=== PATIENT | female | born 1975 | race Caucasian/White ===

== ENCOUNTER 2020-01-01 10:55 | Emergency (ER) | payer OTHER ==
[2020-01-01 11:23] VITALS: BP 132/99
--- NOTE | 2020-01-01 12:17 | ED Physician Documentation ---
PD HPI HEENT - Stated complaint Stated Complaint: R EAR PN/COUGH - Chief complaint Chief Complaint: Heent - History obtained from History obtained from: Patient - History of Present Illness Timing - onset: Other (Very pleasant 44-year-old woman visiting from [place]. She is had about 3 to 4 days of minimally productive cough and mild shortness of breath without fever and since last night has had severe right ear pain. She has a history of recurrent otitis media in both ears and the right is her bad ear.) Review of Systems Constitutional: denies: Fever, Chills Ears: reports: Loss of hearing (Chronic), Ear pain. denies: Drainage/discharge Nose: reports: Rhinorrhea / runny nose, Congestion Throat: denies: Sore throat Respiratory: reports: Cough. denies: Dyspnea PD PAST MEDICAL HISTORY - Past Medical History Past Medical History: Yes Cardiovascular: None Respiratory: Asthma Endocrine/Autoimmune: None GI: None CABLE SYSTEMS INSTALLER: None : None HEENT: Chronic vision loss Psych: None Musculoskeletal: None Derm: None - Past Surgical History Past Surgical History: Yes General: Cholecystectomy /CABLE SYSTEMS INSTALLER: Tubal ligation, Hysterectomy HEENT: Other - Present Medications Home Medications: Ambulatory Orders Medication Instructions Recorded Confirmed Albuterol Sulf [Ventolin Hfa 1 - 2 puffs INH Q4HR PRN #1 inhaler 01/01/20 Inhaler] Amox/Clav 875/125 [Augmentin] 1 each PO Q12H #20 tablet 01/01/20 Benzonatate [Tessalon Perle] 100 - 200 mg PO TID PRN #30 capsule 01/01/20 Fluoxetine HCl [Prozac] 01/01/20 Hydrocodone/Acetaminophen 1 - 2 each PO Q6H PRN #7 tablet 01/01/20 [Hydrocodon-Acetaminophen 5-325] Montelukast Sodium [Singulair] 5 mg PO 01/01/20 Omeprazole 20 mg PO 01/01/20 guaiFENesin/CODEINE [Robitussin AC] 5 - 10 ml PO Q6H PRN #120 ml 01/01/20 - Allergies Allergies/Adverse Reactions: Allergies Allergy/AdvReac Type Severity Reaction Status Date / Time No Known Drug Allergies Allergy Verified 01/01/20 11:23 - Social History Does the pt smoke?: Yes Smoking Status: Current every day smoker Does the pt drink ETOH?: No Does the pt have substance abuse?: No - Immunizations Immunizations are current?: No Immunizations: No immun - POLST Patient has POLST: No PD ED PE NORMAL - Vitals Vital signs reviewed: Yes - General General: Alert and oriented X 3, No acute distress - HEENT HEENT: Other (Severe right otitis media, left TM is significantly sclerosed with a tube in place) - Neck Neck: Supple, no meningeal sign, No bony TTP - Cardiac Cardiac: RRR, No murmur - Respiratory Respiratory: No respiratory distress, Other (Mild expiratory wheezes, nonlabored) - Abdomen Abdomen: Non tender - Derm Derm: No rash - Neuro Neuro: Alert and oriented X 3, Normal speech Results - Vitals Vitals: Vital Signs - 24 hr 01/01/20 11:21 Temperature 36.8 C Heart Rate 117 H Respiratory 18 Rate Blood Pressure 132/99 H O2 Saturation 99 Oxygen O2 Source Room air - Rads (name of study) 2v chest Radiology: EMP read contemporaneously Departure - Departure Disposition: 01 Home, Self Care Clinical Impression: ROM (right otitis media) Condition: Critical Instructions: ED Otitis Media Acute Adult Prescriptions: Albuterol Sulf [Ventolin Hfa Inhaler] 1 - 2 puffs INH Q4HR PRN #1 inhaler PRN Reason: Shortness Of Air/Wheezing Amox/Clav 875/125 [Augmentin] 1 each PO Q12H #20 tablet Benzonatate [Tessalon Perle] 100 - 200 mg PO TID PRN #30 capsule PRN Reason: Cough guaiFENesin/CODEINE [Robitussin AC] 5 - 10 ml PO Q6H PRN #120 ml PRN Reason: Cough Hydrocodone/Acetaminophen [Hydrocodon-Acetaminophen 5-325] 1 - 2 each PO Q6H PRN #7 tablet PRN Reason: pain Comments: Recheck with your doctor and return home, return for new or worsening symptoms. Take plenty of fluids. Do not drink or drive while taking narcotic pain medication. Note that many narcotic pain relievers also contain Tylenol/acetaminophen. Please ensure that your total dose of acetaminophen from all sources does not exceed 3 g (3000 mg) per day. You may get constipated while on this medication. Take a stool softener such as Colace twice a day while you are on it. Also add an [id number] laxative such as senna or MiraLAX on any day that you do not have a bowel movement. If you received a narcotic pain medication or sedative while in the emergency department, do not drive for the next 24 hours. Discharge Date/Time: 01/01/20 12:22
--- NOTE | 2020-01-01 12:19 | XRAY Report ---
Reason: cough Procedure Date: 01/01/2020 Accession Number: [id number] / [id number] Procedure: XR - Chest 2 View X-Ray CPT Code: 81312 Final Report FULL RESULT: EXAM: CHEST RADIOGRAPHY EXAM DATE: 01/01/2020 11:49 AM. CLINICAL HISTORY: Cough. COMPARISON: None. TECHNIQUE: 2 views. FINDINGS: Lungs/Pleura: Evidence of mild central peribronchial thickening. No focal opacities evident. No pleural effusion. No pneumothorax. Normal volumes. Mediastinum: Heart and mediastinal contours are unremarkable. Other: None. IMPRESSION: 1. Mild central peribronchial thickening. 2. No definite focal pulmonary opacities. RADIA
== END 2020-01-01 12:22 | disposition home or self-care (01) ==
LOC: ED 10:55
DX: H66.91 Otitis media, unspecified, right ear (principal); F17.210 Nicotine dependence, cigarettes, uncomplicated
CPT/HCPCS: 71046; 99283; 99284